=== PATIENT | male | born 1950 | race Two or more races ===

== ENCOUNTER 2024-10-22 07:35 | Day surgery (SDC) | payer MEDICARE, MEDICAID, SELFPAY ==
--- NOTE | 2024-10-19 08:28 | EKG_ITS ---
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
[2024-10-19 11:50] VITALS: BMI 40.0
[2024-10-19 12:22] LABS: Collection Type, Urine Clean Catch
[2024-10-19 13:37] LABS: Bilirubin,Urine Negative (Negative); Blood,Urine Negative (Negative); Clarity,Urine Clear (Clear/Hazy); Color,Urine Lt-Yellow (Lt Yel-Yel); Glucose, Urine Negative (Negative); Ketones,Urine Negative (Negative); Leukocyte Esterase,Urine Positive (Negative); Nitrite,Urine Negative (Negative); PH,Urine 6.5 (5.0-7.0); Protein,Urine Negative (Neg - Trace); RBC,Urine 4 /hpf (0-3); Specific Gravity,Urine 1.013 (1.001-1.035); Squamous Epithelial Cell,Urine < 1 /hpf (0-5); Urobilinogen,Urine Negative mg/dL (0.0-1.0); WBC,Urine 8 /hpf (0-5)
[2024-10-19 13:38] LABS: Basophils # (Auto) 0.1 Thou/mm3 (0.0-0.2); Basophils % (Auto) 1 % (0-2.5); Eosinophils # (Auto) 0.2 Thou/mm3 (0.0-0.5); Eosinophils % (Auto) 3 % (0-10); Hematocrit 45.4 % (41.0-53.0); Immature Granulocytes % (Auto) 1 % (0-0); Immature Granulocytes Auto 0.04 Thou/mm3 (0.00-0.00); Lymphocytes % (Auto) 25 % (10-50); Mean Corpuscular Hemoglobin 29.8 pg (25.0-35.0); Mean Corpuscular Volume 90 fL (80-100); Monocytes # (Auto) 0.7 Thou/mm3 (0.0-0.8); Monocytes % (Auto) 9 % (0-12); Neutrophils # (Auto) 5.1 Thou/mm3 (1.8-7.7); Neutrophils % (Auto) 63 % (37-80); Nucleated Red Blood Cell % 0 /100 WBC (0); Platelet Count 215 Thou/mm3 (140-440); Red Blood Count 5.03 Miln/mm3 (4.50-5.90); White Blood Count 8.1 Thou/mm3 (3.8-10.6)
[2024-10-19 13:43] LABS: Alanine Aminotransferase 16 U/L (10-49); Albumin, Serum 4.5 gm/dL (3.4-4.8); Albumin/Globulin Ratio 1.3 (1.2-2.2); Alkaline Phosphatase 145 U/L (46-116); Anion Gap 7 (7-16); Aspartate Amino Transferase 20 U/L (0-34); BUN/Creatinine Ratio 15 Ratio (12-20); Bilirubin,Total 0.4 mg/dL (0.3-1.2); Blood Urea Nitrogen 15 mg/dL (9-23); Calcium 9.3 mg/dL (8.3-10.6); Calcium (Corrected) 9.3 mg/dL (8.5-10.1); Carbon Dioxide 27.3 mMol/L (20.0-31.0); Chloride 108 mMol/L (98-107); Estimated Creatinine Clearance 67.8 mL/min (>60); Globulin 3.4 gm/dL (2.3-3.5); Glucose 101 mg/dL (74-106); Osmolality,Calculated 283 (275-295); Potassium 4.6 mMol/L (3.4-5.1); Sodium 142 mMol/L (136-145); Total Protein 7.9 gm/dL (5.7-8.2); eGFR > 60 See Note
--- NOTE | 2024-10-21 14:09 | ESHP_ITS ---
RE: KANDIS HUNTER : 1950 DATE OF ADMISSION: 10/22/2024 HISTORY OF PRESENT ILLNESS: The patient was referred to me with an elevated PSA of 19.6. He has nocturia x1. Urinary flow is fair. There is no history of gross hematuria. No burning. PAST SURGICAL HISTORY: Hernia operation for umbilical hernia. He had a right total knee surgery and left knee surgery. PAST MEDICAL HISTORY: He has history of hypertension. SOCIAL HISTORY: He has 6 children. ALLERGIES: NONE KNOWN. HOME MEDICATIONS: He takes, 1. Norvasc. 2. Statin medication. 3. Lisinopril. 4. Macrobid. 5. Meloxicam. PHYSICAL EXAMINATION: HEENT: Normal. NECK: Supple. LUNGS: Clear. CARDIOVASCULAR: Heart sounds are normal. ABDOMEN: Soft without any organomegaly. No guarding. No rigidity. EXTREMITIES: Normal. GENITOURINARY: Phallus is normal. The patient is very obese. Testes are down in scrotum. RECTAL: Moderately enlarged prostate with mild firmness in the left prostatic lobe. IMPRESSION: 1. Prostatism. 2. Prostatic obstruction. 3. Elevated PSA of 19.6. PLAN: Cystoscopy and transrectal prostatic ultrasound with ultrasound-guided prostatic needle biopsy. Planned procedure, risks and complications have been discussed with the patient. The patient has understood them and agreed to proceed. DT: 11:51:37 TT: 14:08:00 Ref: [id number] - TID: [id number]
[2024-10-22 08:16] VITALS: BP 172/96; PULSE 77; RESP 18; TEMP 36.6; O2SAT 97
[2024-10-22 08:26] VITALS: BMI 41.2
[2024-10-22] MEDS: RINGERS LACTATED 1000 ML 1,000 ML 20 ML IV (08:26)
[2024-10-22 09:55] VITALS: BP 120/72; PULSE 68; RESP 20; TEMP 36.8; O2SAT 97
--- NOTE | 2024-10-22 09:55 | SUR.PHASEII ---
0955: pt. AAOx4, vitals stable, breathing unlabored, no complaint of pain or nausea, no dressing in place, no active bleed noted, report received from Gage MACE and Nohelia VIGIL.
[2024-10-22 10:00] VITALS: BP 129/72; PULSE 68; RESP 20; TEMP 36.7; O2SAT 97
[2024-10-22 10:05] VITALS: BP 131/83; PULSE 66; RESP 20; TEMP 36.7; O2SAT 98
[2024-10-22 10:10] VITALS: BP 139/69; PULSE 70; RESP 20; TEMP 36.7; O2SAT 94
[2024-10-22 10:25] VITALS: BP 133/82; PULSE 68; RESP 16; TEMP 36.6; O2SAT 95
--- NOTE | 2024-10-22 10:30 | SUR.PHASEII ---
1030: Pt. AAOx4, vitals stable, breathing unlabored, no complaint of pain or nausea, no dressing in place, pt. able to void hematuria, pt. tolerated sips of water well, pt. ambulated to wheelchair with steady gait and no assist, no complications. Gave discharge instructions to the pt. 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 Pt. left with all personal belongings.
--- NOTE | 2024-10-22 13:24 | ESOP_ITS ---
RE: KANDIS HUNTER : 1950 DATE OF OPERATION: 10/22/2024 PREOPERATIVE DIAGNOSES: Prostatism, prostatic obstruction, elevated PSA of 19.6. POSTOPERATIVE DIAGNOSES: Prostatism, prostatic obstruction, elevated PSA of 19.6. PROCEDURES PERFORMED: Cystoscopy, urethral dilatation for bulbar urethral stricture, transrectal prostatic ultrasound and ultrasound-guided prostatic needle biopsy. ANESTHESIA: Monitored anesthesia. INDICATION: The patient is a 74-year-old gentleman with a history of nocturia x1 with PSA of 19.6. Rectally, he has a moderately enlarged prostate with some firmness on the left prostatic lobe. The patient was now scheduled to have cystoscopy and transrectal prostatic ultrasound with ultrasound-guided prostatic needle biopsy. Planned procedure, risks and complications have been discussed with the patient. The patient understood them and agreed to proceed. DESCRIPTION OF PROCEDURE: After the patient was brought to the operating table under adequate monitored anesthesia and dorsal lithotomy position, parts were prepped and draped in the usual fashion. Cystoscopy was then carried out, which revealed adequate urethral meatus. The patient has a wide bore bulbar urethral stricture, which was dilated. Prostatic urethra revealed moderately enlarged prostate. Residual urine 2 ounces yellow and clear. There are no intravesical stones or tumors. Ureteral orifice was found to be normal in position and appearance. The patient was then turned in left lateral position. Transrectal prostatic ultrasound was carried out. Biopsies were obtained from both lobes using ultrasound guidance in all about 10-12 biopsies were obtained. The patient tolerated the entire procedure well and left the room in good condition. DT: 10:06:02 TT: 13:23:00 Ref: [id number] - TID: [id number]
== END 2024-10-22 10:30 | disposition home or self-care (01) ==
PROVIDERS: Anesthesiology; PCP Family Medicine; Referring Provider Surgery; Visit Provider Surgery
PROC: 0TJB8ZZ Inspection of Bladder, Via Natural or Artificial Opening Endoscopic (ICD-10-PCS; CPT 52000; principal; 2024-10-22 09:45)
PROC: (CPT 55700; 2024-10-22 09:45)
DX: C61 Malignant neoplasm of prostate (principal); N35.912 Unspecified bulbous urethral stricture, male; N40.1 Benign prostatic hyperplasia with lower urinary tract symptoms; N13.8 Other obstructive and reflux uropathy; R35.1 Nocturia; I10 Essential (primary) hypertension; E66.9 Obesity, unspecified; Z68.41 Body mass index [BMI] 40.0-44.9, adult
CPT/HCPCS: 55700; 52341; 36415; 76942; 80053; 81001; 85025; 87086; 93005; A4217; A4649; J0694; J1100; J2405; J2704; J3010; J3490; J7120

== ENCOUNTER → 2025-03-25 | Outpatient (CLI) | payer MEDICARE, MEDICAID, SELFPAY ==
--- NOTE | 2025-03-25 | XR_ITS ---
Examination: Bone scan whole body, radioisotope Date and time of exam: March 25, 2025 0756 hours INDICATIONS: Diagnosis malignant neoplasm prostate on biopsy this month, staging Technique: Study has been performed with intravenous administration of 24 mci 99M technetium MDP. Anterior, posterior whole body images are obtained. Images have been obtained including the lower extremities. Findings: Minor asymmetric uptake about the knees Subtle areas of increased isotope accumulation in multiple thoracic vertebral bodies on the posterior view Increased uptake over the maxilla on the anterior view IMPRESSION: Positive bone scan but nonspecific Recommend plain films thoracic spine follow-up
== END | disposition home or self-care (01) ==
PROVIDERS: PCP Surgery; Referring Provider Surgery; Visit Provider Surgery
DX: R93.7 Abnormal findings on diagnostic imaging of other parts of musculoskeletal system (principal); C61 Malignant neoplasm of prostate
CPT/HCPCS: 78306; A9503

== ENCOUNTER → 2025-03-25 | Outpatient (CLI) | payer MEDICARE, MEDICAID, SELFPAY ==
--- NOTE | 2025-03-25 11:00 | XR_ITS ---
Examination: CT pelvis without intravenous contrast. 2-D sagittal and coronal reconstructions. Date and time of exam:March 25, 2020 5:10 AM INDICATIONS: Elevated PSA, clinical diagnosis prostate malignancy CTDI: vol (mGy) :13.3 DLP: (mGycm) : 416 Technique: Multiple 3 mm axial sections of the pelvis have been obtained with the 64 slice high resolution scanner. 2-D sagittal and coronal reconstructions. Low dose protocols were performed. One or more of the following dose reduction techniques were used; automated exposure control, adjustment of the mA and/or KV according to patient size, use of iterative reconstruction technique. Findings: Left external iliac lymphadenopathy, including 17 mm lymph node Right external iliac lymphadenopathy including 14 mm lymph node Bilateral common femoral lymphadenopathy, the largest node 12 mm Normal seminal vesicles AP prostate dimension 5.3 cm Contracted urinary bladder No osteoblastic metastatic disease IMPRESSION: Pelvic lymphadenopathy as above, consider PET CT scan follow-up
== END | disposition home or self-care (01) ==
LOC: CCTX 09:35
PROVIDERS: PCP Physician Assistant; Referring Provider Surgery; Visit Provider Surgery
DX: R59.0 Localized enlarged lymph nodes (principal); C61 Malignant neoplasm of prostate
CPT/HCPCS: 72192